=== PATIENT | female | born 1935 ===

== ENCOUNTER → 2017-08-31 | Outpatient (CLI) | payer MEDICARE, OTHER ==
[~2017-08-31] MED LIST: ACYC-114 PO; ALEN70TA5 PO; ASPI-496 PO; ATOR40TA78 PO; BENZ-17 PO; CETI10CA PO; CHOL200024 PO; FLUT16SP NS; GUAI100L11 PO; HYDR25TA6 PO; LISI40TA PO; METF500T5 PO; METO25TA4 PO; MULT-224 PO; NITR0.4T SL; OMEP-110 PO; OXYB5TAB7 PO; PHEN1LIQ PO; TICA90TA PO; TRAM50TA2 PO; ZOLP10TA PO
[2017-08-31 12:45] LABS: BASOPHILS % (AUTO) 1 % (0-1); EOSINOPHILS # (AUTO) 0.42 x10^3/uL (0-0.4); EOSINOPHILS % (AUTO) 6 % (1-7); LYMPHOCYTES % (AUTO) 20 % (22-44); MD NO; MEAN CORPUSCULAR HEMOGLOBIN 31.6 pg (27.0-34.8); MEAN CORPUSCULAR HGB CONC 33.3 g/dL (32.4-35.8); MEAN CORPUSCULAR VOLUME 94.7 fL (80-100); MEAN PLATELET VOLUME 8.9 fL (7.4-10.4); MONOCYTES # (AUTO) 0.56 x10^3/uL (0.2-0.8); MONOCYTES % (AUTO) 7 % (2-9); NEUTROPHILS # (AUTO) 4.94 x10^3/uL (1.8-6.8); NEUTROPHILS % (AUTO) 66 % (42-75); PLATELET COUNT 304 x10^3/uL (130-400); RED BLOOD COUNT 3.32 x10^6/uL (3.82-5.3); RED CELL DISTRIBUTION WIDTH 14.9 % (9.6-15.2)
[2017-08-31 12:54] LABS: ALANINE AMINOTRANSFERASE 38 U/L (12-78); ALBUMIN 3.4 g/dL (3.4-5.0); ANION GAP 7 mmol/L (5-15); CALCIUM 9.1 mg/dL (8.5-10.1); CHLORIDE 109 mmol/L (98-107); CREATININE 0.73 mg/dL (0.55-1.02)
[2017-08-31 12:57] LABS: ALKALINE PHOSPHATASE 74 U/L (45-117); BILIRUBIN,TOTAL 0.6 mg/dL (0.2-1.0); TOTAL PROTEIN 6.9 g/dL (6.4-8.2)
== END | disposition home or self-care (01) ==
LOC: STAR 11:29 → EDSTATUS 11:30
PROVIDERS: ATTEND Surgery
DX: Z01.818 Encounter for other preprocedural examination (principal); R91.1 Solitary pulmonary nodule; I65.22 Occlusion and stenosis of left carotid artery
CPT/HCPCS: 36415; 71046; 80053; 85025; 93005

== ENCOUNTER 2017-09-07 05:45 | Inpatient (IN) | payer MEDICARE, OTHER ==
[~2017-09-07] VITALS: Ht 152.4 cm; Wt 49.5 kg
[2017-09-07] MEDS ORDERED: LACTATED RINGERS 1,000 ML IV SCH (06:25)
[2017-09-07 06:32] VITALS: BP 121/69
[2017-09-07] MEDS ORDERED: PROTAMINE SULFATE 10 MG/ML, 5ML ONE (09:53)
[2017-09-07] MEDS ORDERED: PAPAVERINE 30 MG/ML, 2ML ONE (09:53)
[2017-09-07] MEDS ORDERED: BUPIVACAINE/PF-EPI 0.5% 1:200K ONE (09:53)
[2017-09-07] MEDS ORDERED: HEPARIN 1,000 UNITS/ML, 10ML ONE (09:54)
[2017-09-07] MEDS ORDERED: LIDOCAINE/PF 1%, 30ML ONE (09:54)
[2017-09-07] MEDS ORDERED: THROMBIN 20,000 UNIT VIAL TP ONE (09:54)
[2017-09-07] MEDS ORDERED: FENTANYL PF 100 MCG/2ML ONE ×3 (10:10→14:09)
[2017-09-07] MEDS ORDERED: MIDAZOLAM 1 MG/ML, 2ML ONE (10:10)
[2017-09-07] MEDS ORDERED: GLYCOPYRROLATE 0.2MG/1ML, 5ML ONE (10:31)
[2017-09-07] MEDS ORDERED: CEFAZOLIN 1,000 MG ONE (10:31)
[2017-09-07] MEDS ORDERED: NEOSTIGMINE 1 MG/ML, 10ML ONE (10:31)
[2017-09-07] MEDS ORDERED: ONDANSETRON 2MG/ML, 2ML ONE (11:39)
[2017-09-07] MEDS ORDERED: METOCLOPRAMIDE 5 MG/ML, 2ML ONE (11:40)
[2017-09-07] MEDS ORDERED: LIDOCAINE GEL 2%, 5ML ONE (11:40)
[2017-09-07] MEDS ORDERED: DEXAMETHASONE 4 MG/ML, 1ML ONE (11:40)
[2017-09-07] MEDS ORDERED: LIDOCAINE-MPF 2% ,5ML ONE (11:40)
[2017-09-07] MEDS ORDERED: PROPOFOL 10 MG/ML, 20ML ONE (11:40)
[2017-09-07] MEDS ORDERED: SODIUM CHLORIDE 0.9% PF 10ML ONE (11:41)
[2017-09-07] MEDS ORDERED: EPHEDRINE 50 MG/ML, 1ML ONE (11:41)
[2017-09-07] MEDS ORDERED: OXYcodone 5 MG/5 ML ORAL.SOL UDC ONE ×2 (14:09→15:09)
[2017-09-07] MEDS ORDERED: ACETAMINOPHEN 650 MG/20.3 ML UDC ONE (14:09)
[2017-09-07] MEDS: FENTANYL PF 100 MCG/2ML IV PRN ×2 (14:15→14:44)
[2017-09-07] MEDS: OXYcodone 5 MG/5 ML ORAL.SOL UDC PO PRN ×2 (14:15→15:16)
[2017-09-07] MEDS ORDERED: ACETAMINOPHEN 325 MG TABLET PO PRN ×3 (14:30→16:02)
[2017-09-07] MEDS ORDERED: CEFAZOLIN PMX 1GM/50ML 50 ML IVPB SCH (16:00)
[2017-09-07] MEDS ORDERED: ONDANSETRON 2MG/ML, 2ML IV PRN (16:00)
[2017-09-07] MEDS ORDERED: morphine SULFATE 10 MG/ML, 1ML IV PRN ×2 (16:00)
[2017-09-07] MEDS ORDERED: HYDROcodone/APAP 5/325 TABLET PO PRN (16:00)
[2017-09-07] MEDS ORDERED: LABETALOL 5MG/ML, 20ML IVPush PRN ×2 (16:00→16:30)
[2017-09-07] MEDS ORDERED: NITROGLYCERIN 0.4 MG BOTTLE (25 TABS) SL PRN (16:30)
[2017-09-07] MEDS ORDERED: METOPROLOL MC SCH (16:30)
[2017-09-07] MEDS ORDERED: ZOLPIDEM 5MG TABLET PO PRN (16:30)
[2017-09-07] MEDS ORDERED: hydrALAzine 20 MG/ML, 1ML IV PRN (17:00)
[2017-09-07] MEDS: INSULIN REGULAR, HUMAN 100 UNIT/ML 3ML VIAL LOW DOSE SS SQ-INSULIN SCH ×2 (17:02→21:11)
[2017-09-07] MEDS: POTASSIUM CHLORIDE 20 MEQ in LACTATED RINGERS 1,000 ML IV SCH (17:02)
[2017-09-07] MEDS ORDERED: CARV-39 PO (17:46)
[2017-09-07] MEDS ORDERED: FURO-93 PO (17:46)
[2017-09-07 18:46] VITALS: BP 142/64
[2017-09-07] MEDS: CEFAZOLIN PMX 1GM/50ML 50 ML IVPB SCH (18:46)
[2017-09-07] MEDS ORDERED: ALBUTEROL SULFATE 2.5 MG/3 ML NPPB PRN (20:00)
[2017-09-07 20:45] VITALS: BP 146/63
[2017-09-07] MEDS: CARVEDILOL 25 MG TABLET PO SCH (20:56)
[2017-09-07] MEDS: TICAGRELOR 90 MG TABLET PO SCH (20:57)
[2017-09-07] MEDS: SODIUM CHLORIDE FLUSH 10ML SYR IVF SCH (20:57)
[2017-09-07] MEDS ORDERED: ATORVASTATIN 40 MG TABLET PO SCH (21:00)
[2017-09-07] MEDS ORDERED: GUAIFENESIN 200 MG TABLET PO PRN (21:00)
[2017-09-07] MEDS ORDERED: GUAIFENESIN 200 MG TABLET PO SCH (21:00)
[2017-09-07] MEDS ORDERED: LISINOPRIL 20 MG TABLET PO SCH (21:00)
[2017-09-07] MEDS ORDERED: FLUTICASONE NASAL SPRAY 16GM NAS SCH (21:00)
[2017-09-07 23:26] VITALS: BP 147/70
[2017-09-08] MEDS: CEFAZOLIN PMX 1GM/50ML 50 ML IVPB SCH (02:15)
[2017-09-08 02:37] VITALS: BP 111/58
[2017-09-08 03:27] VITALS: BP 116/62
[2017-09-08] MEDS: POTASSIUM CHLORIDE 20 MEQ in LACTATED RINGERS 1,000 ML IV SCH ×2 (05:26→17:25)
[2017-09-08] MEDS ORDERED: ASPIRIN 81 MG TABLET EC PO SCH (06:00)
[2017-09-08] MEDS: INSULIN REGULAR, HUMAN 100 UNIT/ML 3ML VIAL LOW DOSE SS SQ-INSULIN SCH ×3 (07:00→16:49)
[2017-09-08 07:06] VITALS: BP 127/66
[2017-09-08] MEDS ORDERED: OMEPRAZOLE 10 MG CAPSULE.DR PO SCH ×2 (07:30)
[2017-09-08] MEDS: CARVEDILOL 25 MG TABLET PO SCH (08:28)
[2017-09-08] MEDS: TICAGRELOR 90 MG TABLET PO SCH (08:29)
[2017-09-08] MEDS: SODIUM CHLORIDE FLUSH 10ML SYR IVF SCH (08:29)
[2017-09-08] MEDS ORDERED: CHOLECALCIFEROL 1,000 UNIT TABLET PO SCH (09:00)
[2017-09-08] MEDS ORDERED: FUROSEMIDE 20 MG TABLET PO SCH (09:00)
[2017-09-08] MEDS ORDERED: OXYBUTYNIN CHLORIDE 5 MG TABLET PO SCH (09:00)
[2017-09-08] MEDS ORDERED: POTASSIUM CHLORIDE 20 MEQ TAB.ER.PRT PO SCH (09:00)
[2017-09-08] MEDS ORDERED: HYDROCHLOROTHIAZIDE 25 MG TABLET PO SCH (09:00)
[2017-09-08] MEDS ORDERED: CETIRIZINE 10 MG TABLET PO SCH (09:00)
[2017-09-08 13:29] VITALS: BP 94/54
== END 2017-09-08 17:50 | disposition home or self-care (01) | DRG 39 ==
LOC: ORIP 05:45 → EDSTATUS 10:00 → 4NOR 15:30
PROVIDERS: ADMIT Surgery; ATTEND Surgery
PROC: 03CL0ZZ Extirpation of Matter from Left Internal Carotid Artery, Open Approach (ICD-10-PCS; 2017-09-07)
PROC: 03CN0ZZ Extirpation of Matter from Left External Carotid Artery, Open Approach (ICD-10-PCS; 2017-09-07)
PROC: 03UJ0KZ Supplement Left Common Carotid Artery with Nonautologous Tissue Substitute, Open Approach (ICD-10-PCS; 2017-09-07)
PROC: 03UL0JZ Supplement Left Internal Carotid Artery with Synthetic Substitute, Open Approach (ICD-10-PCS; 2017-09-07)
PROC: 03CJ0Z6 (ICD-10-PCS; principal; 2017-09-07 10:00)
DX: I65.23 Occlusion and stenosis of bilateral carotid arteries (principal); Z95.5 Presence of coronary angioplasty implant and graft; E11.9 Type 2 diabetes mellitus without complications; E78.5 Hyperlipidemia, unspecified; I10 Essential (primary) hypertension; I25.10 Atherosclerotic heart disease of native coronary artery without angina pectoris; I25.2 Old myocardial infarction
CPT/HCPCS: 36415; 82962; 86850; 86900; 93005; C1729; J0690; J1100; J1644; J1815; J2250; J2405; J2704; J2710; J2720; J3010; J3480; J3490; C1768; J0360; J2440; J2765; J7120

== ENCOUNTER → 2017-10-29 | Outpatient (CLI) | payer MEDICARE, OTHER ==
[~2017-10-29] MED LIST changes: +CARV-39 PO; +CARV12.52 PO; +FERR-46 PO; +FURO-93 PO; +GLIP5TAB10 PO; +LISI-170 PO; +METF500T17 PO; -METF500T5 PO
[2017-10-29 12:16] LABS: ALANINE AMINOTRANSFERASE 45 U/L (12-78); ALBUMIN 2.9 g/dL (3.4-5.0); ANION GAP 7 mmol/L (5-15); CALCIUM 9.2 mg/dL (8.5-10.1); CHLORIDE 106 mmol/L (98-107); CREATININE 0.76 mg/dL (0.55-1.02)
[2017-10-29 12:21] LABS: MEAN CORPUSCULAR HEMOGLOBIN 31.1 pg (27.0-34.8); MEAN CORPUSCULAR HGB CONC 33.8 g/dL (32.4-35.8); MEAN CORPUSCULAR VOLUME 92.1 fL (80-100); MEAN PLATELET VOLUME 8.1 fL (7.4-10.4); PLATELET COUNT 407 x10^3/uL (130-400); RED BLOOD COUNT 3.25 x10^6/uL (3.82-5.3); RED CELL DISTRIBUTION WIDTH 18.4 % (9.6-15.2)
[2017-10-29 12:25] LABS: ALKALINE PHOSPHATASE 109 U/L (45-117); BILIRUBIN,TOTAL 0.6 mg/dL (0.2-1.0); TOTAL PROTEIN 7.1 g/dL (6.4-8.2)
[2017-10-29 12:58] LABS: BASOPHILS # (AUTO) 0.11 x10^3/uL (0-0.1); BASOPHILS % (AUTO) 2 % (0-1); EOSINOPHILS # (AUTO) 0.53 x10^3/uL (0-0.4); EOSINOPHILS % (AUTO) 8 % (1-7); LYMPHOCYTES # (AUTO) 1.32 x10^3/uL (1-3.4); LYMPHOCYTES % (AUTO) 20 % (22-44); MD MORPH REVIEW ONLY; MONOCYTES # (AUTO) 0.66 x10^3/uL (0.2-0.8); MONOCYTES % (AUTO) 10 % (2-9); NEUTROPHILS # (AUTO) 4.12 x10^3/uL (1.8-6.8); NEUTROPHILS % (AUTO) 61 % (42-75)
[2017-10-29 12:59] LABS: <PLATELET ESTIMATE> INCREASED; ACANTHOCYTES 1+; ANISOCYTOSIS 1+; ECHINOCYTES 1+; LARGE PLATELETS 1+
== END | disposition home or self-care (01) ==
LOC: STAR 10:42
PROVIDERS: ATTEND Surgery
DX: Z01.818 Encounter for other preprocedural examination (principal); I65.21 Occlusion and stenosis of right carotid artery; Z95.5 Presence of coronary angioplasty implant and graft
CPT/HCPCS: 36415; 71046; 80053; 85025; 93005